=== PATIENT | female | born 1980 | race Two or more races ===

== ENCOUNTER → 2018-01-23 | Outpatient (CLI) | payer SELFPAY ==
--- NOTE | 2018-01-23 10:20 | RAD ---
ULTRASOUND-GUIDED CORE BIOPSY OF THE RIGHT BREAST Indications: Solid nodule at the 12:00 position of the right breast 7 cm from the nipple performed at an outside facility. Procedure: Sonography of the right breast was performed which demonstrates a 1.4 cm solid hypoechoic nodule at the 12:00 position 7 cm from the nipple. The procedure and possible complications including bleeding and infection were explained. The patient provided both verbal and written consent. An appropriate skin odell was made on the right breast using ultrasound guidance. A timeout was performed which confirmed the name of the patient and date of and the type of procedure and the side of the procedure. Allergies to medications were reviewed. The patient's questions were answered. Note-the patient's daughter was present during the interview since the patient did not speak Danish well. The right breast was prepped and draped in the usual sterile fashion. A total of 8 cc of 1% lidocaine with epinephrine was utilized for local anesthesia. Using sterile technique and ultrasound guidance, a small skin neck was made and a 13-gauge Bard needle cannula was directed to the edge of the nodule. A total of 4 14-gauge core biopsies were obtained coaxially through the needle cannula using ultrasound guidance. Sonographic spot images were obtained. Following this, a breast biopsy marker clip was placed coaxially along the edge of the nodule using ultrasound guidance. A sonographic spot image demonstrates the biopsy clip adjacent to the nodule. Manual pressure was applied for 5 minutes and hemostasis was deemed adequate. Postprocedure sonography demonstrates no significant post procedure hematoma. Sterile Band-Aid was applied to the biopsy site. The patient tolerated the procedure well without complication. The biopsy samples were placed into formalin and sent to pathology for further evaluation. Follow-up will be with the patient's referring physician. IMPRESSION: Ultrasound-guided core biopsy sampling of the nodule of the right breast was performed without complication. Pathology results pending. DIAGNOSTIC RIGHT-SIDED MAMMOGRAPHY: 2-D digital CC and MLO mammographic views of the right breast Were performed. There is a biopsy clip present at the 12:00 position of the right breast 6 cm from the nipple which is adjacent to a nodule. IMPRESSION: Placement of a biopsy clip at the 12:00 position of the right breast in the area of the nodule.
--- NOTE | 2018-01-24 17:08 | PATHOLOGY ---
[facility] Accession Number: [id number] . 01 Material submitted: . RIGHT BREAST MASS . 01 Clinical history: . Right breast mass . 02 Diagnosis: Breast tissue, right breast mass needle biopsies: - Fibroadenoma. - Stromal fibrosis. [facility]/01/24/2018 . 02 Comment: There is no evidence of malignancy. (JPM:[facility] 01/24/2018) . 02 Electronically signed: . Brandt Simmons MD, Pathologist NPI- [id number] . 01 Gross description: . The specimen is received in formalin, labeled "Manuelbravo, Vikki, right breast", are three fibro-fatty needle cores measuring 1.5, 1.4, and a 1.2 cm in length and up to 0.2 cm in diameter, entirely submitted in A1-A3. Specimen excised at: 0920 on 01/23/18, placed in formalin at: 0925 on 01/23/18, formalin exposure: Approximately 15 hours 20 minutes ([facility]; 01/23/2018) SHS/SHS . 02 Pathologist provided ICD-10: D24.1, N60.31 . 02 CPT . 300887 Specimen Comment: A courtesy copy of this report has been sent to Specimen Comment: [phone], , . Specimen Comment: Report sent to ,DR WORTHY / DR HALL Performed at: 01 [facility] [address], [place] [id number] MD Meek Carrillo MD Phone: [phone] Performed at: 02 [facility] [address] [place], [place] [id number] MD Brandt Simmons MD Phone: [phone]
== END | disposition home or self-care (01) ==
LOC: US 08:32
PROVIDERS: ATTEND Surgery
DX: D24.1 Benign neoplasm of right breast (principal); N60.31 Fibrosclerosis of right breast
CPT/HCPCS: 19083; 77065; C1713; 19081; 76942

== ENCOUNTER → 2021-01-26 | Outpatient (CLI) | payer OTHER ==
--- NOTE | 2021-01-26 16:33 | RAD ---
US PELVIS W/TV History: Reason: menorrhagia / Spl. Instructions: / History: Comparison: None Technique: Grayscale and color Doppler imaging of the pelvis was performed using transabdominal and t ransvaginal technique. Findings: The uterus measures 10.4 x 7.1 x 8.4 cm. Degraded evaluation of the uterus due to positioning of the uterus. Heterogeneous myometrial lesion anteriorly measures approximately 5.6 cm, may represent sepa rate lesions. The endometrial stripe measures 11 mm. Bilateral ovaries not evaluated due to overlying structures and positioning. Minimal pelvic free flui d, likely physiologic. IMPRESSION: 1. Ill-defined heterogeneous lesion within the uterus, most likely fibroid. Electronically signed by: Dominik Maradiaga DO (01/26/2021 4:31 PM) [id number]
== END ==
LOC: US 13:07
PROVIDERS: ATTEND Family Medicine
DX: N92.0 Excessive and frequent menstruation with regular cycle (principal)
CPT/HCPCS: 76830; 76856